=== PATIENT | female | born 1960 | race Caucasian/White ===

== ENCOUNTER 2020-05-06 13:49 | Inpatient (IN) ==
[2020-05-06] MEDS ORDERED: SODIUM CHLORIDE 0.9% 1000ML 1,000 ML IV ONE (14:20)
--- NOTE | 2020-05-06 14:36 | Emergency Department Note ---
Impression & Plan Hypercalcemia, Malignant neoplasm of endometrium, Bone metastases ED Provider Note NAME: RAPHAEL HAYWOOD AGE: 59 SEX: F ARRIVES VIA: Walk-In INFORMANT: Patient, ED PROVIDER(S): Shawn Dominique MD CHIEF COMPLAINT: Referred. Elevated Calcium. PLAN: Disposition: Admit MEDICAL DECISION MAKING: The patient is a pleasant 59-year-old woman with a past medical history of uterine cancer with bone mets followed by gynecology/[place]cology at [facility] [place] who undergoes radiation treatments at the [facility] locally who presents emergency department after being referred by her providers for elevated calcium to 12.1. However, the patient reports that today she feels the best she has felt recently in some time. She denies any fevers, chills, cough, congestion, nausea, vomiting abdominal pain, diarrhea or constipation. She has some pain in her left hip which she reports is unchanged and related to her metastatic disease. On arrival the patient is fatigued appearing but no acute distress, afebrile stable vital signs. Her reflexes are within normal limits. Abdomen is benign. EKG without overt acute ischemia. Chest x-ray negative for acute cardiopulmonary process. WBC and platelets within normal limits. H/H 11.2/35.4 without prior values for comparison. Chemistry without metabolic acidosis. BUN 23 with creatinine of 1.03 with BUN/cr>20 consistent with the patient's clinically dry appearance. Patient's calcium is 12.5 slightly elevated from earlier today per her report. Albumin 3.8. Phosphorus 2.0 and otherwise no significant electrolyte abnormalities. Patient within normal limits. TSH within normal limits. While the patient reports feeling relatively well today she does feel as though she has not been doing well in the past week related to weakness and body aches., After discussing the options for possible treatment and outpatient follow-up she did prefer admission at this time. Case was discussed with Curtis CERRATO PAC with Dr. Gamino, [facility] hospitalist, who will evaluate the patient for admission. Treatment initiated with IV zoledronic acid and subcu calcitonin in addition to IV fluid hydration. Triage Nursing notes reviewed and agree them. Prior medical records reviewed Vital Signs: reviewed and remarkable for no significant abnormalities Differential diagnosis: Infection, dehydration, metabolic abnormality, hypo/hyperglycemia, electrolyte disturbance, anemia, hypoxia, cardiac sources, intracerebral event, toxicologic, neurologic, as well as other pathologies. ER treatment provided: See below. Diagnostics interpreted by me: ECG: Normal sinus rhythm, 98 bpm, no ectopy, no overt ST elevation or depression, QTC 413, QRS 64. Cardiac Monitoring: An order for continuous cardiac monitoring was placed and demonstrated Normal sinus rhythm, 98 bpm, no ectopy. Laboratory studies: See below Imaging studies: XR chest 1V portable HISTORY: 59 years-old Female Chest Pain acute atypical chest pain COMPARISON: CT radiation study 04/08/2020 TECHNIQUE: Portable AP view of the chest FINDINGS: Cardiac silhouette is upper limits of normal in size. No pneumothorax, pleural effusion, overt pulmonary edema or airspace consolidation typical for pneumonia. Bones of the chest appear grossly intact. IMPRESSION: No acute process. Consultation(s): Case was discussed with Curtis CERRATO PAC with Dr. Gamino, [facility], who will evaluate the patient for admission. Treatment initiated with IV zoledronic acid and subcu calcitonin in addition to IV fluid hydration. HPI: The patient is a pleasant 59-year-old woman with a past medical history of uterine cancer with bone mets followed by gynecology/oncology at [facility] [place] who undergoes radiation treatments at the [facility] locally who presents emergency department after being referred by her providers for elevated calcium to 12.1. However, the patient reports that today she feels the best she has felt recently in some time. She denies any fevers, chills, cough, congestion, nausea, vomiting abdominal pain, diarrhea or constipation. She has some pain in her left hip which she reports is unchanged and related to her metastatic disease. ROS: See above HPI for pertinent positives & negatives. A total of 10 systems reviewed and were otherwise negative. PAST MEDICAL HISTORY:See Below PAST SURGICAL HISTORY:See Below FAMILY HISTORY:See Below SOCIAL HISTORY:See Below HOME MEDICATIONS:See Below ALLERGIES:See Below VITALS:See Below PHYSICAL EXAMINATION: GENERAL: Awake, alert, fatigued-appearing, in no distress HENT: Normocephalic, atraumatic. Oropharynx with dry mucous membranes and o therwise unremarkable. EYES: Normal conjunctiva. Sclera non-icteric. NECK: Supple. No nuchal rigidity. FROM. No JVD. RESPIRATORY: Clear to auscultation. CARDIAC: Regular rate, normal rhythm. Extremities warm and well perfused. Pulses equal. ABDOMEN: Soft, non-distended. No tenderness to palpation. No rebound or guarding. No masses. RECTAL: Deferred. MUSCULOSKELETAL: Chest examination reveals no tenderness. The back is symmetrical on inspection without obvious abnormality. There is no CVA tender ness to palpation. No joint edema. LOWER EXTREMITIES: Calves are equal size bilaterally and non-tender. No edema. No discoloration. NEURO: Normal sensorium. No sensory or motor deficits noted. DTRs wnl. SKIN: No rash or jaundice noted. Shawn Dominique MD Past Med/Surg History Medical History Diabetes mellitus HTN (hypertension) Hypercholesteremia Malignant neoplasm of endometrium 02/01/2020 Surgical History History of surgery Robotic assisted total laparoscopic hysterectomy with BSO, bilateral pelvic lymphadenectomy, cysto by Dr. Macdonald 02/01/2020 Hx of tonsillectomy Family History Mother Hypercholesteremia H/O partial thyroidectomy Father , 83yo Heart disease Myocardial infarction Hypercholesteremia Hypertension Lung disease Worked in [employer] Brother Colorectal cancer Brother Hypertension Hypercholesteremia Kidney disease Sister Colorectal cancer Social History Smoking Status: Never smoker Second Hand Exposure: No; Hx Alcohol Use: No Hx Substance Use: No Preferred Language: Lithuanian Communication Ability: Effective Visual Impairment: No Limitations Hearing Ability: Normal [employer] Required: No Beliefs That Will Affect Care: None marital status: Single Current Living Situation: Alone and Family Current Living Situation Comment: lives with brother and mother current occupational status: retired 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[employer] Other Information That Helps Us Care for You: No Feels Safe at Home: Yes Safety Concerns: Feels Safe At This Time caffeine: No during the past year weight has: decreased > 10 lbs Assistive Devices: Glasses and Walker Allergies Allergies Allergy/AdvReac Type Severity Reaction Status Date / Time No Known Drug Allergies Allergy Verified 04/15/20 11:28 Home Meds Home Medications Medication Instructions Recorded Confirmed aspirin 81 mg tablet,delayed 81 mg PO DAILY 10/09/19 05/06/20 release atorvastatin 20 mg tablet 20 mg PO DAILY 10/09/19 05/06/20 cholecalciferol (vitamin D3) 50 2,000 units PO DAILY cap 10/09/19 05/06/20 mcg (2,000 unit) capsule lisinopril 20 1 tab PO DAILY 10/09/19 05/06/20 mg-hydrochlorothiazide 12.5 mg tablet metformin 500 mg tablet 500 mg PO DAILY tab 10/12/19 05/06/20 acetaminophen 500 mg tablet 1,000 mg PO Q6H PRN tab 04/04/20 05/06/20 omeprazole 40 mg PO BID 05/06/20 05/06/20 ondansetron HCl 4 mg PO Q8H PRN 05/06/20 05/06/20 Previous Rx's Medication Instructions Recorded tramadol 50 mg tablet 50 mg PO Q8H PRN #45 tab MDD 150 04/16/20 Results & Data (ED) Vital Signs Vital Signs - 24 hr 05/06/20 13:50 05/06/20 14:00 05/06/20 14:31 Temperature 36.4 C L Temperature Source Oral Pulse Rate 125 H 99 H 93 H Pulse Rate [Apical] Pulse Rate from SpO2 Sensor 99 H 94 H Respiratory Rate 18 19 16 Respiratory Effort / Characteristics Respiratory Depth Blood Pressure 129/69 128/87 112/74 Blood Pressure [Right Arm] Blood Pressure Mean 89 97 80 Blood Pressure Mean [Right Arm] Blood Pressure Position [Right Arm] Pulse Oximetry 98 99 99 Oxygen Delivery Method Room Air Sepsis Recent Fever Within 48 Hours No Sepsis New/Unexplained Change in Mental Status No Sepsis Action Taken by Nursing No Action Required 05/06/20 14:32 05/06/20 14:36 05/06/20 15:00 Temperature Temperature Source Pulse Rate 97 H 91 H Pulse Rate [Apical] Pulse Rate from SpO2 Sensor 96 H 93 H Respiratory Rate 13 21 Respiratory Effort / Characteristics Respiratory Depth Blood Pressure 115/85 Blood Pressure [Right Arm] Blood Pressure Mean 105 Blood Pressure Mean [Right Arm] Blood Pressure Position [Right Arm] Pulse Oximetry 99 97 98 Oxygen Delivery Method Room Air Sepsis Recent Fever Within 48 Hours Sepsis New/Unexplained Change in Mental Status Sepsis Action Taken by Nursing 05/06/20 15:01 05/06/20 15:30 05/06/20 15:31 Temperature Temperature Source Pulse Rate 92 H 96 H 91 H Pulse Rate [Apical] Pulse Rate from SpO2 Sensor 93 H 94 H 92 H Respiratory Rate 20 14 13 Respiratory Effort / Characteristics Respiratory Depth Blood Pressure 104/71 Blood Pressure [Right Arm] Blood Pressure Mean 92 Blood Pressure Mean [Right Arm] Blood Pressure Position [Right Arm] Pulse Oximetry 99 98 98 Oxygen Delivery Method Sepsis Recent Fever Within 48 Hours Sepsis New/Unexplained Change in Mental Status Sepsis Action Taken by Nursing 05/06/20 16:11 05/06/20 16:30 05/06/20 17:00 Temperature Temperature Source Pulse Rate 90 95 H 94 H Pulse Rate [Apical] Pulse Rate from SpO2 Sensor 90 97 H 94 H Respiratory Rate 16 17 17 Respiratory Effort / Characteristics Respiratory Depth Blood Pressure Blood Pressure [Right Arm] Blood Pressure Mean Blood Pressure Mean [Right Arm] Blood Pressure Position [Right Arm] Pulse Oximetry 99 98 98 Oxygen Delivery Method Sepsis Recent Fever Within 48 Hours Sepsis New/Unexplained Change in Mental Status Sepsis Action Taken by Nursing 05/06/20 17:30 05/06/20 17:51 05/06/20 19:22 Temperature Temperature Source Pulse Rate 88 83 Pulse Rate [Apical] 90 Pulse Rate from SpO2 Sensor 88 86 Respiratory Rate 17 14 17 Respiratory Effort / Characteristics Non-Labored Spontaneous Respiratory Depth Normal Blood Pressure 125/89 Blood Pressure [Right Arm] 137/94 Blood Pressure Mean 104 Blood Pressure Mean [Right Arm] 108 Blood Pressure Position [Right Arm] Lying Pulse Oximetry 98 98 98 Oxygen Delivery Method Room Air Sepsis Recent Fever Within 48 Hours Sepsis New/Unexplained Change in Mental Status Sepsis Action Taken by Nursing Laboratory Data Attestation: I reviewed the patient's lab results. Result diagrams: 05/06/20 14:31 05/06/20 14:31 Lab Results 05/06/20 05/06/20 05/06/20 Range/Units 14:31 14:31 14:31 WBC 8.39 (4.8-10.8) K/uL RBC 4.59 (4.2-5.4) M/uL Hgb 11.2 L (12.0-16.0) g/dL Hct 35.4 L (37-47) % MCV 77.1 L (80-100) fL MCH 24.4 L (25-34) pg MCHC 31.6 L (32-36) g/dL RDW Std Deviation 41.7 (36.4-46.3) fL RDW Coeff of Jasmyn 14.7 H (11.5-14.5) % Plt Count 331 (130-400) K/uL MPV 9.7 (7.4-10.4) fL Immature Gran % (Auto) 0.2 % Neut % (Auto) 81.2 % Lymph % (Auto) 9.5 % [place] % (Auto) 8.0 % Eos % (Auto) 0.6 % Baso % (Auto) 0.5 % Neut # (Auto) 6.81 H (1.4-6.5) K/uL Lymph # (Auto) 0.80 L (1.2-3.4) K/uL [place] # (Auto) 0.67 H (0.11-0.59) K/uL Eos # (Auto) 0.05 (0-0.5) K/uL Baso # (Auto) 0.04 (0-0.2) K/uL Immature Gran # (Auto) 0.02 (0.00-0.02) K/uL PT Cancelled INR Cancelled APTT Cancelled PTT Ratio Cancelled Sodium 135 L (136-145) mmol/L Potassium 4.1 (3.5-5.1) mmol/L Chloride 100 (98-107) mmol/L Carbon Dioxide 27 (21-32) mmol/L Anion Gap 9.0 (3-11) BUN 23 H (7-18) mg/dl Creatinine 1.03 (0.6-1.2) mg/dl Est Cr Clr Drug Dosing 59.7 ml/min Est GFR ( Amer) 67.9 Est GFR (Non-Af Amer) 58.6 BUN/Creatinine Ratio 22.2 H (10-20) Glucose 89 (70-99) mg/dl Uric Acid 4.6 (2.6-7.2) mg/dl Calcium 12.5 H* (8.5-10.1) mg/dl Phosphorus 2.0 L (2.5-4.9) mg/dl Magnesium 2.1 (1.8-2.4) mg/dl Total Bilirubin 0.4 (0.2-1) mg/dl Direct Bilirubin 0.1 (0-0.2) mg/dl AST 13 L (15-37) U/L ALT 18 (12-78) U/L Alkaline Phosphatase 110 (45-117) U/L Total Creatine Kinase 37 (26-192) U/L Troponin I < 0.015 (0-0.045) ng/ml Total Protein 8.0 (6.4-8.2) gm/dl Albumin 3.3 L (3.4-5.0) gm/dl Globulin 4.7 H (2.5-4.0) gm/dl Albumin/Globulin Ratio 0.7 L (0.9-2) Lipase 153 (73-393) U/L TSH 0.390 (0.300-4.500) uIu/ml Urine Color Urine Appearance (Clear) Urine pH (4.5-7.5) Ur Specific [place] (1.000-1.030) Urine Protein (Negative) Urine Glucose (UA) (Negative) Urine Ketones (Negative) Urine Blood (Negative) Urine Nitrite (Negative) Urine Bilirubin (Negative) Urine Urobilinogen (Negative) Ur Leukocyte Esterase (Negative) Urine WBC (Auto) (0-5) /hpf Urine RBC (Auto) (0-4) /hpf U Hyaline Cast (Auto) (0-5) /lpf U Epithel Cells (Auto) (0-5) /lpf Urine Bacteria (Auto) (Negative) COVID-19 Eval Order SARS-CoV-2 (PCR) (Negative) Influenza Type A (PCR) (Neg) Influenza Type B (PCR) (Neg) RSV (RT-PCR) (Neg) 05/06/20 05/06/20 05/06/20 Range/Units 15:54 17:29 17:29 WBC (4.8-10.8) K/uL RBC (4.2-5.4) M/uL Hgb (12.0-16.0) g/dL Hct (37-47) % MCV (80-100) fL MCH (25-34) pg MCHC (32-36) g/dL RDW Std Deviation (36.4-46.3) fL RDW Coeff of Jasmyn (11.5-14.5) % Plt Count (130-400) K/uL MPV (7.4-10.4) fL Immature Gran % (Auto) % Neut % (Auto) % Lymph % (Auto) % [place] % (Auto) % Eos % (Auto) % Baso % (Auto) % Neut # (Auto) (1.4-6.5) K/uL Lymph # (Auto) (1.2-3.4) K/uL [place] # (Auto) (0.11-0.59) K/uL Eos # (Auto) (0-0.5) K/uL Baso # (Auto) (0-0.2) K/uL Immature Gran # (Auto) (0.00-0.02) K/uL PT 11.7 INR 1.1 APTT 25.9 PTT Ratio 0.9 Sodium (136-145) mmol/L Potassium (3.5-5.1) mmol/L Chloride (98-107) mmol/L Carbon Dioxide (21-32) mmol/L Anion Gap (3-11) BUN (7-18) mg/dl Creatinine (0.6-1.2) mg/dl Est Cr Clr Drug Dosing ml/min Est GFR ( Amer) Est GFR (Non-Af Amer) BUN/Creatinine Ratio (10-20) Glucose (70-99) mg/dl Uric Acid (2.6-7.2) mg/dl Calcium (8.5-10.1) mg/dl Phosphorus (2.5-4.9) mg/dl Magnesium (1.8-2.4) mg/dl Total Bilirubin (0.2-1) mg/dl Direct Bilirubin (0-0.2) mg/dl AST (15-37) U/L ALT (12-78) U/L Alkaline Phosphatase (45-117) U/L Total Creatine Kinase (26-192) U/L Troponin I (0-0.045) ng/ml Total Protein (6.4-8.2) gm/dl Albumin (3.4-5.0) gm/dl Globulin (2.5-4.0) gm/dl Albumin/Globulin Ratio (0.9-2) Lipase (73-393) U/L TSH (0.300-4.500) uIu/ml Urine Color Urine Appearance (Clear) Urine pH (4.5-7.5) Ur Specific [place] (1.000-1.030) Urine Protein (Negative) Urine Glucose (UA) (Negative) Urine Ketones (Negative) Urine Blood (Negative) Urine Nitrite (Negative) Urine Bilirubin (Negative) Urine Urobilinogen (Negative) Ur Leukocyte Esterase (Negative) Urine WBC (Auto) (0-5) /hpf Urine RBC (Auto) (0-4) /hpf U Hyaline Cast (Auto) (0-5) /lpf U Epithel Cells (Auto) (0-5) /lpf Urine Bacteria (Auto) (Negative) COVID-19 Eval Order CovFluRsv at [facility] SARS-CoV-2 (PCR) NEGATIVE (Negative) Influenza Type A (PCR) Negative (Neg) Influenza Type B (PCR) Negative (Neg) RSV (RT-PCR) Negative (Neg) 05/06/20 Range/Units 19:27 WBC (4.8-10.8) K/uL RBC (4.2-5.4) M/uL Hgb (12.0-16.0) g/dL Hct (37-47) % MCV (80-100) fL MCH (25-34) pg MCHC (32-36) g/dL RDW Std Deviation (36.4-46.3) fL RDW Coeff of Jasmyn (11.5-14.5) % Plt Count (130-400) K/uL MPV (7.4-10.4) fL Immature Gran % (Auto) % Neut % (Auto) % Lymph % (Auto) % [place] % (Auto) % Eos % (Auto) % Baso % (Auto) % Neut # (Auto) (1.4-6.5) K/uL Lymph # (Auto) (1.2-3.4) K/uL [place] # (Auto) (0.11-0.59) K/uL Eos # (Auto) (0-0.5) K/uL Baso # (Auto) (0-0.2) K/uL Immature Gran # (Auto) (0.00-0.02) K/uL PT INR APTT PTT Ratio Sodium (136-145) mmol/L Potassium (3.5-5.1) mmol/L Chloride (98-107) mmol/L Carbon Dioxide (21-32) mmol/L Anion Gap (3-11) BUN (7-18) mg/dl Creatinine (0.6-1.2) mg/dl Est Cr Clr Drug Dosing ml/min Est GFR ( Amer) Est GFR (Non-Af Amer) BUN/Creatinine Ratio (10-20) Glucose (70-99) mg/dl Uric Acid (2.6-7.2) mg/dl Calcium (8.5-10.1) mg/dl Phosphorus (2.5-4.9) mg/dl Magnesium (1.8-2.4) mg/dl Total Bilirubin (0.2-1) mg/dl Direct Bilirubin (0-0.2) mg/dl AST (15-37) U/L ALT (12-78) U/L Alkaline Phosphatase (45-117) U/L Total Creatine Kinase (26-192) U/L Troponin I (0-0.045) ng/ml Total Protein (6.4-8.2) gm/dl Albumin (3.4-5.0) gm/dl Globulin (2.5-4.0) gm/dl Albumin/Globulin Ratio (0.9-2) Lipase (73-393) U/L TSH (0.300-4.500) uIu/ml Urine Color Yellow Urine Appearance Clear (Clear) Urine pH 6.0 (4.5-7.5) Ur Specific [place] 1.013 (1.000-1.030) Urine Protein Negative (Negative) Urine Glucose (UA) Negative (Negative) Urine Ketones 1+ H (Negative) Urine Blood Negative (Negative) Urine Nitrite Negative (Negative) Urine Bilirubin Negative (Negative) Urine Urobilinogen Negative (Negative) Ur Leukocyte Esterase 3+ H (Negative) Urine WBC (Auto) >30 H (0-5) /hpf Urine RBC (Auto) 0-4 (0-4) /hpf U Hyaline Cast (Auto) 1-5 (0-5) /lpf U Epithel Cells (Auto) 10-20 H (0-5) /lpf Urine Bacteria (Auto) Negative (Negative) COVID-19 Eval Order SARS-CoV-2 (PCR) (Negative) Influenza Type A (PCR) (Neg) Influenza Type B (PCR) (Neg) RSV (RT-PCR) (Neg) Administered Medications Sodium Chloride (Nss 1000ml) 1,000 mls @ 100 mls/hr IV .Q10H VILMA Stop: 06/05/20 21:59 Last Admin: 05/06/20 21:20 Dose: 100 mls/hr Documented by: [id number] Ondansetron HCl (Ondansetron Inj 2 Mg/Ml 2 Ml Vial) 4 mg IV Q6H PRN PRN Reason: Nausea Stop: 06/05/20 20:58 Last Admin: 05/06/20 22:37 Dose: 4 mg Documented by: [id number] Pantoprazole Sodium (Pantoprazole 40 Mg Tab) 40 mg PO BID VILMA Stop: 06/05/20 20:59 Last Admin: 05/06/20 22:25 Dose: 40 mg Documented by: [id number] Discontinued Medications Al Hydrox/Mg Hydrox/Simethicone (Gi Cocktail Ed Use) 1 dose PO ONE ONE Stop: 05/06/20 16:37 Last Admin: 05/06/20 17:03 Dose: 1 dose Documented by: [id number] Sodium Chloride (Nss 1000ml) 1,000 mls @ 999 mls/hr IV .Q1H1M ONE Stop: 05/06/20 15:20 Last Infusion: 05/06/20 16:23 Dose: 0 mls/hr Documented by: [id number] Admin: 05/06/20 15:21 Dose: 999 mls/hr Documented by: [id number] Famotidine (Pepcid 20mg Iv Push) 20 mg in 5 mls @ 2.5 mls/min IV NOW STA Stop: 05/06/20 16:34 Last Admin: 05/06/20 17:02 Dose: 2.5 mls/min Documented by: [id number] Zoledronic Acid 4 mg/ Sodium (Chloride) 105 mls @ 210 mls/hr IV ONE ONE Stop: 05/06/20 17:29 Last Infusion: 05/06/20 18:27 Dose: 0 mls/hr Documented by: [id number] Admin: 05/06/20 17:52 Dose: 210 mls/hr Documented by: [id number] Sodium Chloride (Nss 1000ml) 1,000 mls @ 999 mls/hr IV .Q1H1M VILMA Stop: 05/06/20 18:14 Last Infusion: 05/06/20 18:27 Dose: 0 mls/hr Documented by: [id number] Admin: 05/06/20 17:22 Dose: 999 mls/hr Documented by: [id number] Calcitonin [place] 200 units/ (Syringe) 1 mls @ 0 mls/sec SQ NOW ONE Stop: 05/06/20 17:31 Last Admin: 05/06/20 17:52 Dose: 1 mls/sec Documented by: [id number] Discharge Plan Visit Data Chief Complaint: Abnormal Labs/Diagnostic Testing Stated Complaint: ABNORMAL LABS ED Provider: Shawn Dominique Discharge Problem: Hypercalcemia, Malignant neoplasm of endometrium, Bone metastases Patient Disposition: Admitted As Inpatient Discharge Instructions Interventions: ED Discharge Assessment Last Done: 05/06/20 20:22
--- NOTE | 2020-05-06 14:54 | XRay Report ---
XR chest 1V portable HISTORY: 59 years-old Female Chest Pain acute atypical chest pain COMPARISON: CT radiation study 04/08/2020 TECHNIQUE: Portable AP view of the chest FINDINGS: Cardiac silhouette is upper limits of normal in size. No pneumothorax, pleural effusion, overt pulmon aminta edema or airspace consolidation typical for pneumonia. Bones of the chest appear grossly intact. IMPRESSION: No acute process. ACT 112: Negative or not required by law. The above report was generated using voice recognition software. It may contain grammatical, syntax o r spelling errors. Electronically signed by: Greg Swan M.D. 05/06/2020 2:53 PM
[2020-05-06 15:16] LABS: Basophils # (auto) 0.04 K/uL (0-0.2); Basophils % (auto) 0.5 %; Eosinophils # (auto) 0.05 K/uL (0-0.5); Eosinophils % (auto) 0.6 %; Hematocrit (blood only) 35.4 % (37-47); Hemoglobin 11.2 g/dL (12.0-16.0); Immature Granulocytes # (auto) 0.02 K/uL (0.00-0.02); Immature Granulocytes % (auto) 0.2 %; Lymphocytes % (auto) 9.5 %; Mean Corpuscular Hemoglobin 24.4 pg (25-34); Mean Corpuscular Hgb Conc 31.6 g/dL (32-36); Mean Corpuscular Volume 77.1 fL (80-100); Mean Platelet Volume 9.7 fL (7.4-10.4); Monocytes # (auto) 0.67 K/uL (0.11-0.59); Neutrophils # (auto) 6.81 K/uL (1.4-6.5); Neutrophils % (auto) 81.2 %; Platelet Count 331 K/uL (130-400); RDW Coefficient of Variation 14.7 % (11.5-14.5); RDW Standard Deviation 41.7 fL (36.4-46.3); Red Blood Count 4.59 M/uL (4.2-5.4); White Blood Count 8.39 K/uL (4.8-10.8)
[2020-05-06 16:05] LABS: Alanine Aminotransferase 18 U/L (12-78); Albumin Globulin Ratio 0.7 (0.9-2); Albumin Level 3.3 gm/dl (3.4-5.0); Alkaline Phosphatase 110 U/L (45-117); Aspartate Aminotransferase 13 U/L (15-37); BUN Creatinine Ratio 22.2 (10-20); Bilirubin Direct 0.1 mg/dl (0-0.2); Bilirubin,Total 0.4 mg/dl (0.2-1); Blood Urea Nitrogen 23 mg/dl (7-18); Calcium 12.5 mg/dl (8.5-10.1); Carbon Dioxide 27 mmol/L (21-32); Chloride 100 mmol/L (98-107); Creatine Kinase 37 U/L (26-192); Creatinine Clr Calc Pharmacy 59.7 ml/min; Est GFR (African American) 67.9; Est GFR (Non-African American) 58.6; Globulin 4.7 gm/dl (2.5-4.0); Glucose 89 mg/dl (70-99); Lipase 153 U/L (73-393); Magnesium 2.1 mg/dl (1.8-2.4); Potassium 4.1 mmol/L (3.5-5.1); Sodium 135 mmol/L (136-145); Troponin I < 0.015 ng/ml (0-0.045); Uric Acid 4.6 mg/dl (2.6-7.2)
[2020-05-06 16:16] LABS: INR 1.1 (0.9-1.1); Partial Thromboplastin Ratio 0.9; Partial Thromboplastin Time 25.9 Seconds (21.0-31.0); Prothrombin Time 11.7 Seconds (9.0-12.0)
[2020-05-06] MEDS ORDERED: FAMOTIDINE 20MG IV PUSH 20 MG/5 ML SYR IV STA (16:33)
[2020-05-06] MEDS ORDERED: GI COCKTAIL ED USE PO ONE (16:36)
[2020-05-06] MEDS ORDERED: ZOLEDRONIC ACID 4 MG in 0.9 % SODIUM CHLORIDE 100 ML IV ONE (17:00)
[2020-05-06] MEDS ORDERED: SODIUM CHLORIDE 0.9% 1000ML 1,000 ML IV SCH (17:14)
[2020-05-06] MEDS ORDERED: CALCITONIN SALMON 400 UNITS/2 ML SQ STA (17:15)
--- NOTE | 2020-05-06 17:24 | History & Physical Report ---
Date of Service May 06, 2020 Assessment & Plan (1) Hypercalcemia: I suspect the patient's hypercalcemia is likely related to underlying malignancy and bony metastasis. Currently she does not have any underlying neurologic sequelae related to her hypercalcemia we will get her to the hospital proceed as follows: She is already received calcitonin as well as zoledronic acid. She has received 1 L of normal saline solution and we will give her an additional liter and place her on maintenance IV fluid overnight. We will repeat labs in the morning to ensure her calcium is moving in the right direction. Patient does not have a local oncologist and she is expressed some desire to establish one. She notes that her primary care team was in the process of establishing this. We will therefore consult hematology/oncology for further recommendations while she is in the hospital. We will use Lovenox for DVT prevention I discussed CODE STATUS with her in the event of cardiopulmonary arrest she wishes to be a level 1 full code History of Present Illness Chief Complaint: My calcium is high Primary Care Provider: Monica Wesley This is a 59-year-old female with a history of metastatic endometrial cancer. Patient notes that she had a total abdominal hysterectomy and oophorectomy in January 2020 at [facility]. She said during the course of her oncologic evaluation she was found to have bone mets to her left hip. Because of this she underwent 10 radiation therapy treatments [facility]. She said that she did not require chemotherapy to date. Her [employer]ER/oncology team is currently at [facility] and she does not have a local medical oncologist. Patient was complaining of some heartburn earlier in the week and she therefore saw her primary care nurse practitioner who ordered blood work. Patient was found to be hypercalcemic and she was referred to the emergency department for further evaluation. Today the emergency department the patient had a chest x-ray that showed no acute cardiopulmonary process. CBC showed her white blood cell count and platelet count were within normal range. Her hemoglobin and hematocrit are 11.2 and 35.4. Chemistry profile showed sodium was 135 her potassium and creatinine were within the normal range. Her calcium was elevated at 12.5. Cardiac enzymes were not elevated. Lipase and TSH were in the normal range. An EKG showed normal sinus rhythm no prolonging of the QT interval was noted. Patient the patient about symptomatology related to her hypercalcemia. She said that she has no issues with kidney stones. She does not have any back pain but does have some pain in her left hip but this is a chronic problem related to her bone metastases. She does not have any headaches. She has had no episodes of confusion. She denies any abdominal pain or nausea vomiting. She notes that she ambulates with a walker due to pain in her left hip. She has not had any recent falls, head injuries, or loss of consciousness. Thus far in the emergency department she has received 1 L of normal saline. The treating emergency room physician has ordered 4 mg of zoledronic acid along with 200 units of calcitonin. At the time of my exam she was resting comfortably in bed in no distress. Allergies Allergy/AdvReac Type Severity Reaction Status Date / Time No Known Drug Allergies Allergy Verified 04/15/20 11:28 Home Medications Medication Instructions Recorded Confirmed Type aspirin 81 mg tablet,delayed 81 mg PO DAILY 10/09/19 05/06/20 History release atorvastatin 20 mg tablet 20 mg PO DAILY 10/09/19 05/06/20 History cholecalciferol (vitamin D3) 50 2,000 units PO DAILY cap 10/09/19 05/06/20 History mcg (2,000 unit) capsule lisinopril 20 1 tab PO DAILY 10/09/19 05/06/20 History mg-hydrochlorothiazide 12.5 mg tablet metformin 500 mg tablet 500 mg PO DAILY tab 10/12/19 05/06/20 History acetaminophen 500 mg tablet 1,000 mg PO Q6H PRN tab 04/04/20 05/06/20 History tramadol 50 mg tablet 50 mg PO Q8H PRN #45 tab MDD 150 04/16/20 Rx omeprazole 40 mg PO BID 05/06/20 05/06/20 History ondansetron HCl 4 mg PO Q8H PRN 05/06/20 05/06/20 History Past Med/Surg History Medical History Diabetes mellitus HTN (hypertension) Hypercholesteremia Malignant neoplasm of endometrium 02/01/2020 Surgical History History of surgery Robotic assisted total laparoscopic hysterectomy with BSO, bilateral pelvic lymphadenectomy, cysto by Dr. 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 [employer] Brother Colorectal cancer Brother Hypertension Hypercholesteremia Kidney disease Sister Colorectal cancer Social History Smoking Status: Never smoker Second Hand Exposure: No; Hx Alcohol Use: No Hx Substance Use: No Preferred Language: Urdu Communication Ability: Effective Visual Impairment: No Limitations Hearing Ability: Normal Animal Ride Attendant Required: No Beliefs That Will Affect Care: None marital status: Single Current Living Situation: Alone and Family Current Living Situation Comment: lives with brother and mother current occupational status: retired 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/[employer] Other Information That Helps Us Care for You: No Feels Safe at Home: Yes Safety Concerns: Feels Safe At This Time caffeine: No during the past year weight has: decreased > 10 lbs Assistive Devices: Glasses and Walker Review of Systems Constitutional: no fever, no body aches and no weakness Eyes: no diplopia Ear, Nose, Mouth, Throat: no ear pain Respiratory: no cough and no dyspnea Cardiovascular: no chest pain Gastrointestinal: + heartburn; no abdominal pain, no nausea and no vomiting Genitourinary: no dysuria and no urinary frequency Musculoskeletal: + joint pain (Left hip); no back pain Integumentary: no rash Neurologic: no localized weakness Physical Exam Constitutional: well developed and well nourished; no acute distress Eyes: PERRL; no conjunctival abnormality Wears glasses ENMT: Ears: no hearing impairment Neck: trachea midline Respiratory: normal respiratory effort, lungs clear to auscultation Cardiovascular: Rate/Rhythm: regular rate and regular rhythm Gastrointestinal (Abdomen): Percussion/Palpation: abdomen soft; abdomen nontender (No pain with palpation) Musculoskeletal: No calf tenderness. No pain with palpation of her spine from the cervical region to the lumbar region Skin: no rashes, warm and dry Neurologic: CN's II-XI intact bilaterally and moves all extremities Psychiatric: A+Ox3, euthymic affect Results & Data Results & Data ([facility]) Vital Signs (Past 12 Hours) Vital Signs Temp Pulse Resp BP Pulse Ox 05/06/20 15:31 91 H 13 98 05/06/20 15:30 96 H 14 104/71 98 05/06/20 15:01 92 H 20 99 05/06/20 15:00 91 H 21 115/85 98 05/06/20 14:36 97 05/06/20 14:32 97 H 13 99 05/06/20 14:31 93 H 16 112/74 99 05/06/20 14:00 99 H 19 128/87 99 05/06/20 13:50 36.4 C L 125 H 18 129/69 98 Supervising Physician Co-Signing Physician Notes I personally saw and examined the patient. I verified all mancini points and agree with MIKE Rojas with the following exceptions and/or additions: 59-year-old female presents to the ER with elevated calcium on outpatient labs. On no bisphosphonates or denosumab as an outpatient despite multiple bone metastatic endometrial cancer. She is under gynecology oncology in [place] and has no local oncologist. Metastatic disease was diagnosed by an orthopedic oncologist in [place] after left hip pain showed lytic lesions and subsequent biopsy confirmed metastatic endometrial cancer. Subsequently she was referred to radiation oncology here in [place]. She is unsure whether her [employer]/ONC physician in [place] has the results of her bone scans. She currently feels improved after radiation treatments to her left hip and thoracic spine. No planned follow up until July. O/E Pain over right ribs, left shoulder (Unable to abduct above 90 degrees), Left lateral hip on any hip movements and weightbearing. HS 1+2, no murmurs, Chest CTAB A/P Asymptomatic moderate hypercalcemia - Agree with zometa given metastatic bone disease. Consult oncology for ongoing treatment of this. No need for further calcitonin as not severe. PG Care Time/CCT Total # of Minutes Spent Total Time Spent with Patient: Total time spent is greater than 50% in coordination of care (as documented) at patient's floor/unit and/or counseling patient: Coding Level of Care Code 70352 Initial Inpt Care Lvl 2 Diagnoses Hypercalcemia E83.52
[2020-05-06] MEDS ORDERED: CALCITONIN SALMON 200 UNITS in SYRINGE 0 ML SQ ONE (17:30)
[2020-05-06 18:36] LABS: Influenza A virus by PCR Negative (Neg); Influenza B virus by PCR Negative (Neg); RSV by PCR Negative (Neg); SARS CoV2 RNA(COVID-19) InHosp NEGATIVE (Negative)
--- NOTE | 2020-05-06 18:42 | Electrocardiogram Report ---
Test Reason : Blood Pressure : / mmHG Vent. Rate : 098 BPM Atrial Rate : 098 BPM P-R Int : 140 ms QRS Dur : 064 ms QT Int : 324 ms P-R-T Axes : 025 003 037 degrees QTc Int : 413 ms Normal sinus rhythm Normal ECG No previous ECGs available Confirmed by Sherwin Patten ([id number]) on 05/06/2020 6:42:18 PM Referred By: ED Confirmed By:Sherwin Patten
[2020-05-06 19:43] LABS: Appearance Urine Clear (Clear); Bacteria Urine Automated Negative (Negative); Bilirubin Urine Negative (Negative); Blood Urine Negative (Negative); Color Urine Yellow; Glucose Urine UA Negative (Negative); Ketones Urine 1+ (Negative); Leukocyte Esterase Urine 3+ (Negative); Nitrite Urine Negative (Negative); Protein Urine Negative (Negative); RBC Urine Automated 0-4 /hpf (0-4); Specific Gravity Urine 1.013 (1.000-1.030); Urobilinogen Urine Negative (Negative); WBC Urine Automated >30 /hpf (0-5)
[2020-05-06] MEDS ORDERED: ACETAMINOPHEN 500 MG TAB PO PRN (20:59)
[2020-05-06] MEDS: SODIUM CHLORIDE 0.9% 1000ML 1,000 ML IV SCH (21:20)
[2020-05-06] MEDS: PANTOprazole 40 MG TAB PO SCH (22:25)
[2020-05-06] MEDS: ONDANSETRON INJ 2 MG/ML 2 ML VIAL IV PRN (22:37)
[2020-05-06] MEDS ORDERED: GLUCOSE 40% GEL 15 GM TUBE PO PRN (22:43)
[2020-05-06] MEDS ORDERED: DEXTROSE 50% 50 ML SYRINGE IV PRN (22:43)
[2020-05-06] MEDS ORDERED: GLUCOSE 10 TABS/TUBE PO PRN (22:43)
[2020-05-06] MEDS ORDERED: CARBOHYDRATES FOR HYPOGLYCEMIA PO PRN (22:43)
[2020-05-06] MEDS ORDERED: GLUCAGON FOR INJ 1 MG VIAL SQ PRN (22:43)
[2020-05-07 07:22] LABS: BUN Creatinine Ratio 20.1 (10-20); Creatinine Clr Calc Pharmacy 81.9 ml/min; Est GFR (African American) 98.1; Est GFR (Non-African American) 84.7; Potassium 3.7 mmol/L (3.5-5.1)
[2020-05-07] MEDS ORDERED: metFORMIN HCL 500 MG TAB PO SCH (07:30)
[2020-05-07] MEDS: SODIUM CHLORIDE 0.9% 1000ML 1,000 ML IV SCH ×2 (07:34→20:28)
[2020-05-07] MEDS: ASPIRIN 81 MG ECTAB PO SCH (09:24)
[2020-05-07] MEDS: ATORVASTATIN 20 MG TAB PO SCH (09:24)
[2020-05-07] MEDS: CHOLECALCIFEROL 1,000 UNITS 25 MCG TAB PO SCH (09:24)
[2020-05-07] MEDS: PANTOprazole 40 MG TAB PO SCH ×2 (09:25→20:28)
[2020-05-07] MEDS: LISINOPRIL/HCTZ 20/12.5MG 1 TAB TAB PO SCH (09:25)
[2020-05-07] MEDS: ENOXAPARIN INJ 40 MG/0.4 ML SYR SQ SCH (09:25)
[2020-05-07] MEDS: INSULIN ASPART 100 UNITS/ML 3 ML PEN SC SCH ×4 (09:30→22:23)
[2020-05-07] MEDS: ONDANSETRON INJ 2 MG/ML 2 ML VIAL IV PRN ×2 (09:35→16:36)
[2020-05-07] MEDS: INSULIN GLARGINE SOLOSTAR 100 UNITS/ML 3 ML PEN SC SCH ×2 (09:40→22:23)
--- NOTE | 2020-05-07 12:37 | Consultation Report ---
DATE OF CONSULTATION: 05/07/2020 MEDICAL ONCOLOGY CONSULTATION REASON FOR CONSULTATION: Metastatic endometrial carcinoma (bone mets). HISTORY OF PRESENT ILLNESS: Mary is a pleasant 59-year-old female patient who was admitted to [facility] [address] early this morning with an elevated calcium level. The patient now has an established diagnosis of metastatic endometrial cancer, originally diagnosed with stage IA of the endometrium in 01/2020. The patient underwent total hysterectomy performed by Dr. Macdonald at [facility]. She was to receive adjuvant radiation therapy and unfortunately was diagnosed with metastatic endometrial carcinoma of the bony skeleton. Specifically, lesions are multiple in number. However, the symptomatic lesions were within the thoracic spine and left femur. She subsequently received 10 fractions of radiation therapy to both the T-spine and left femur, total dose administered was 3000 cGy. Her bone pain has significantly improved. The patient has not been formally evaluated by medical oncology and is on no current treatment. The patient subsequently has been battling with heartburn-like symptomatology, actually saw her nurse practitioner who ordered blood work and was found to have an elevated calcium level of 12.5. She was subsequently admitted and given calcitonin, bisphosphonate therapy and IV hydration. The patient is awake, alert and appropriate, has no other complaints and is requesting medical oncology followup locally. She is scheduled to follow up with Dr. Macdonald next month. I will plan to see her after her visit with Dr. Macdonald. PAST MEDICAL HISTORY: Includes metastatic endometrial carcinoma, hypertension, diabetes mellitus and hypercholesterolemia. PAST SURGICAL HISTORY: Robotic-assisted total laparoscopic hysterectomy and bilateral salpingo-oophorectomy, bilateral pelvic lymphadenectomy performed by Dr. Macdonald on 02/01/2020, remote history of tonsillectomy. MEDICATIONS: Prior to admission include Zofran 4 mg p.o. q.8 hours p.r.n., omeprazole 40 mg p.o. b.i.d., tramadol 50 mg p.o. q.8 hours p.r.n., acetaminophen 1000 mg p.o. q.6 hours p.r.n., metformin 500 mg p.o. daily, lisinopril/hydrochlorothiazide 1 tablet p.o. daily, cholecalciferol 2000 units p.o. daily, atorvastatin 20 mg p.o. daily, aspirin 81 mg p.o. daily. ALLERGIES: No known drug allergies. FAMILY HISTORY: Father at age 83, suffered from heart disease, hypercholesterolemia, hypertension and lung disease. Mother with history of hypercholesterolemia and partial thyroidectomy. She had a brother succumbed to colorectal cancer and another brother who suffers from kidney disease, hypercholesterolemia and hypertension. She also lost her sister to colorectal cancer. SOCIAL HISTORY: The patient lives with her brother and mother. She is retired. She is a nonsmoker, nondrinker, non-illicit drug user. REVIEW OF SYSTEMS: CONSTITUTIONAL: As per HPI, most notably for symptoms related to pyrosis. Denies anorexia or weight loss, however, her appetite has diminished with the heartburn symptoms. No fevers, chills or sweats. SKIN: No rashes or lesions. No history of dermatoses. HEENT: Negative for headaches, lightheadedness or dizziness. No acute visual or hearing deficits. No sinus symptoms, sore throat or dysphagia. LYMPHATICS: No history of lymphadenopathy or lymphoproliferative disease. CARDIAC: No history of coronary artery disease, no angina or palpitations. PULMONARY: Negative for COPD. She is not short of breath, dyspneic or orthopneic. No cough or hemoptysis. GASTROINTESTINAL: Positive for pyrosis. No nausea or vomiting, diarrhea or constipation, hematochezia or melena stools. GENITOURINARY: No hematuria, dysuria, or urinary incontinence. MUSCULOSKELETAL: Recent diagnosis of bony mets, status post radiation therapy. ENDOCRINE: Positive for diabetes mellitus. NEUROLOGIC: Negative for seizure, stroke, or migraine headache. HEMATOLOGIC: Positive for microcytic anemia. PHYSICAL EXAMINATION: GENERAL: Very pleasant 59-year-old female, awake, alert and appropriate, in no acute distress. VITAL SIGNS: Temperature 36.7, pulse 87, respiratory rate 16, blood pressure 116/77, O2 sat 97% on room air. SKIN: Warm, dry, noncyanotic without petechia, rash or ecchymosis. HEENT: Head is atraumatic, normocephalic. Eyes: PERRLA, EOMI. Nares patent without rhinorrhea or discharge. Throat is clear. Tongue midline. No buccal lesions or ulcerations. NECK: Supple without JVD or thyromegaly. LYMPHATICS: No cervical or supraclavicular palpable nodes. HEART: Regular rate and rhythm. No clicks, rubs, murmurs, or gallops. LUNGS: Clear to auscultation bilaterally. ABDOMEN: Soft, nontender, nondistended. EXTREMITIES: No clubbing, cyanosis or edema. Pneumatic compression stockings in place. NEUROLOGICAL: She is awake, alert and oriented x3. Cranial nerves grossly intact. LABORATORY DATA: WBC count 8390, hemoglobin 11.2, platelet count 331,000. Sodium 137, potassium 3.7, chloride 104, carbon dioxide 25, creatinine 0.76, BUN 15, calcium 10, albumin 3.3. RADIOGRAPHIC REPORT: Chest x-ray negative. IMPRESSION: 1. Hypercalcemia, attributable to malignancy. 2. Microcytic anemia. 3. Metastatic endometrial carcinoma. 4. Pyrosis. PLAN: In summary, Mary is a very pleasant 59-year-old female who was admitted to [facility] [address] earlier this morning with elevated calcium levels. This lady is primarily followed by surgical gynecology/oncology at the [facility] when she was diagnosed with stage IA endometrial carcinoma. The patient subsequently underwent robotic-assisted laparoscopic total abdominal hysterectomy and bilateral salpingo-oophorectomy performed by Dr. Macdonald in mid January. Shortly thereafter developed skeletal pain and was found to have biopsy proven skeletal metastatic disease. The patient has not engaged medical oncology and is on no current systemic therapy. She received palliative XRT to the thoracic spine and left femur, which completed on 04/29. I spoke to Dr. Gilmore on this regard. The patient is requesting continuity of care from a medical oncology standpoint. Clearly, this lady should be on some form of systemic therapy and would like to receive copies of all radiographic studies done to date. Regular bisphosphonate therapy would be warranted in view of hypercalcemia as well as a disseminated osseous metastatic disease. She will reconvene with Dr. Macdonald in mid May. I would like to see her towards the end of May and discuss treatment options thereafter. We will also begin working up Mary's anemia while in house. Obtain iron studies and a reticulocyte count. I have also taken the liberty of ordering a CA-125. Thank you very much for allowing me to participate in her care. I anticipate seeing her in followup upon discharge.
--- NOTE | 2020-05-07 17:02 | Hospitalist Progress Note ---
Date of Service May 07, 2020 Assessment & Plan (1) Hypercalcemia: 1-18 Ca 12.5, asymptomatic likely related to metastatic disease received 1L fluids, zoledronic acid and calcitonin 1-19 Ca 10, hypercalcemia resolved check PTH in morning may need long-term bisphosphonate therapy (2) Bone metastases: s/p radiation therapy 10 fractions total of 3000cGy to T-spine and left femur (3) Malignant neoplasm of endometrium: Dr. French saw patient and will follow up in clinic after discharge patient will need systemic therapy (4) Complicated UTI (urinary tract infection): 1-18 urine with >30 WBC, 3+ LE, negative nitrite, negative bacteria -19 culture with > 100,000 CFU, awaiting species (5) Diabetes mellitus: stop metformin while inpatient cont levemir 8 units, aspart with meals (6) Anemia: Dr. French evaluating with iron study and retic count (7) HTN (hypertension): well controlled continue lisinopril/HCTZ DVT prophy lovenox discharge home in morning 05-08 Admission and Anticipated Discharge Date Admission Date: May 06, 2020 Results & Data Results & Data ([facility]) Vital Signs (Past 12 Hours) Vital Signs Temp Pulse Resp BP Pulse Ox 05/07/20 15:44 36.5 C 78 17 102/70 96 05/07/20 07:57 36.7 C 87 16 116/77 97 PG Care Time/CCT Total # of Minutes Spent Total Time Spent with Patient: Total time spent is greater than 50% in coordination of care (as documented) at patient's floor/unit and/or counseling patient: Coding Level of Care Code 71202 Subseq Hosp Care Lvl 2 Diagnoses Hypercalcemia E83.52 Bone metastases C79.51 Malignant neoplasm of endometrium C54.1 Complicated UTI (urinary tract infection) N39.0 Diabetes mellitus E11.9 Diabetes mellitus type: type 2 Diabetes mellitus 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 use: unspecified 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 use status Diabetes mellitus complication status: without complication Anemia D64.9 Anemia type: unspecified type HTN (hypertension) I10 Hypertension type: essential hypertension (1) Diabetes mellitus Diabetes mellitus type: type 2 Diabetes mellitus 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
[2020-05-07 23:33] VITALS: O2SAT 95
[2020-05-08] MEDS: ONDANSETRON INJ 2 MG/ML 2 ML VIAL IV PRN (04:49)
[2020-05-08] MEDS: SODIUM CHLORIDE 0.9% 1000ML 1,000 ML IV SCH (05:58)
[2020-05-08] MEDS: DICLOFENAC SOD 1% GEL 100 GM TUBE EXT SCH ×2 (05:58→12:38)
[2020-05-08 06:14] LABS: Basophils # (auto) 0.04 K/uL (0-0.2); Basophils % (auto) 0.5 %; Eosinophils # (auto) 0.06 K/uL (0-0.5); Eosinophils % (auto) 0.8 %; Hematocrit (blood only) 32.8 % (37-47); Hemoglobin 10.3 g/dL (12.0-16.0); Immature Granulocytes # (auto) 0.02 K/uL (0.00-0.02); Immature Granulocytes % (auto) 0.3 %; Lymphocytes # (auto) 0.66 K/uL (1.2-3.4); Mean Corpuscular Hemoglobin 24.2 pg (25-34); Mean Corpuscular Hgb Conc 31.4 g/dL (32-36); Mean Platelet Volume 9.4 fL (7.4-10.4); Monocytes # (auto) 0.59 K/uL (0.11-0.59); Neutrophils % (auto) 81.4 %; Platelet Count 311 K/uL (130-400); RDW Coefficient of Variation 14.8 % (11.5-14.5); RDW Standard Deviation 41.5 fL (36.4-46.3); Red Blood Count 4.26 M/uL (4.2-5.4); Reticulocyte % 0.7 % (0.5-2.0); Reticulocytes # 0.03 10^6/uL (0.02-0.10); White Blood Count 7.37 K/uL (4.8-10.8)
[2020-05-08 06:51] LABS: Albumin Level 2.8 gm/dl (3.4-5.0); BUN Creatinine Ratio 11.2 (10-20); Calcium 9.5 mg/dl (8.5-10.1); Creatinine Clr Calc Pharmacy 84.1 ml/min; Est GFR (African American) 101.3; Est GFR (Non-African American) 87.4; Magnesium 1.8 mg/dl (1.8-2.4); Potassium 3.4 mmol/L (3.5-5.1)
[2020-05-08 07:21] LABS: Albumin Globulin Ratio 0.7 (0.9-2); Bilirubin,Total 0.4 mg/dl (0.2-1); Ferritin 804.1 ng/ml (8-388); Globulin 4.1 gm/dl (2.5-4.0); Phosphorus 1.6 mg/dl (2.5-4.9); Total Protein 6.9 gm/dl (6.4-8.2)
[2020-05-08] MEDS ORDERED: POTASSIUM PHOS 3 MMOL/1 ML INFUSION IV STA (07:47)
--- NOTE | 2020-05-08 07:58 | Discharge Summary ---
Date of Service May 08, 2020 Admission HPI Per Admitting Provider This is a 59-year-old female with a history of metastatic endometrial cancer. Patient notes that she had a total abdominal hysterectomy and oophorectomy in January 2020 at [facility]. She said during the course of her oncologic evaluation she was found to have bone mets to her left hip. Because of this she underwent 10 radiation therapy treatments [facility]. She said that she did not require chemotherapy to date. 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 Patient was complaining of some heartburn earlier in the week and she therefore saw her primary care nurse practitioner who ordered blood work. Patient was found to be hypercalcemic and she was referred to the emergency department for further evaluation. Today the emergency department the patient had a chest x-ray that showed no acute cardiopulmonary process. CBC showed her white blood cell count and platelet count were within normal range. Her hemoglobin and hematocrit are 11.2 and 35.4. Chemistry profile showed sodium was 135 her potassium and creatinine were within the normal range. Her calcium was elevated at 12.5. Cardiac enzymes were not elevated. Lipase and TSH were in the normal range. An EKG showed normal sinus rhythm no prolonging of the QT interval was noted. Patient the patient about symptomatology related to her hypercalcemia. She said that she has no issues with kidney stones. She does not have any back pain but does have some pain in her left hip but this is a chronic problem related to her bone metastases. She does not have any headaches. She has had no episodes of confusion. She denies any abdominal pain or nausea vomiting. She notes that she ambulates with a walker due to pain in her left hip. She has not had any recent falls, head injuries, or loss of consciousness. Thus far in the emergency department she has received 1 L of normal saline. The treating emergency room physician has ordered 4 mg of zoledronic acid along with 200 units of calcitonin. At the time of my exam she was resting comfortably in bed in no distress. Principal Diagnosis hypercalcemia Discharge Exam Constitutional well developed and well nourished; no acute distress Eyes PERRL, conjunctivae normal, anicteric sclerae ENMT Mouth: oral mucous membranes not dry Respiratory normal respiratory effort; no respiratory distress and no labored breathing Auscultation: lungs clear to auscultation bilaterally; no crackles, no rales, no rhonchi and no wheezes Cardiovascular Rate/Rhythm: regular rate and regular rhythm Heart Sounds: no murmur and no cardiac rub Vessels: normal peripheral pulses and radial pulses present; no JVD Extremities: no edema Gastrointestinal (Abdomen) Inspection/Auscultation: abdomen normal to inspection and normal bowel sounds; abdomen not distended Percussion/Palpation: abdomen soft; abdomen nontender, no guarding, abdomen not rigid and no hepatosplenomegaly Musculoskeletal Head/Neck/Chest: normocephalic and head atraumatic Spine: no cervical spinal tenderness, no cervical muscular tenderness, no thoracic spinal tenderness and no lumbar spinal tenderness Skin no rashes, warm and dry Neurologic CN's II-XI intact bilaterally and moves all extremities Motor/Sensory: no tremor and no sensory deficit Psychiatric Orientation: alert, oriented to person, oriented to place and oriented to time Apperance: appropriately groomed; not disheveled Affect: euthymic affect; no anxious affect and no tearful affect Genitourinary no CVA tenderness Discharge Data Allergies Allergy/AdvReac Type Severity Reaction Status Date / Time No Known Drug Allergies Allergy Verified 04/15/20 11:28 Consultations 05/06/20 16:33 ED Decision to Admit Stat 05/06/20 20:59 Consult Oncology Routine Hospital Course (1) Hypercalcemia: 1-18 Ca 12.5, asymptomatic likely related to metastatic disease received 1L fluids, zoledronic acid and calcitonin 1-19 Ca 10, hypercalcemia resolved check PTH in morning may need long-term bisphosphonate therapy, defer to PCP 1-20 Ca 9.5 (normal) (2) Complicated UTI (urinary tract infection): 1-18 urine with >30 WBC, 3+ LE, negative nitrite, negative bacteria 1-19 culture with > 100,000 CFU, awaiting species 1-20 urine culture with E. coli susceptible to bactrim start bactrim DS 160/800 BID for 7 days (3) Hypophosphatemia: 1-20 phos was 1.6, giving 15 mmol K-phos (4) Hypokalemia: 1-20 K was 3.4, receiving about 20 meq K with K-phos giving another 20meq KCl (5) Bone metastases: s/p radiation therapy 10 fractions total of 3000cGy to T-spine and left femur (6) Malignant neoplasm of endometrium: Dr. French saw patient and will follow up in clinic after discharge patient will need systemic therapy (7) Diabetes mellitus: stop metformin while inpatient insulin while inpatient (8) Anemia: Dr. French evaluating with iron study and retic count (9) HTN (hypertension): well controlled continue lisinopril/HCTZ DVT prophy lovenox discharge home in morning 1-20 Total Time Total Time Spent Total Time Spent (In Minutes): 50 minutes Total Time Includes: Examination of the Patient, Discharge Planning, Medication Reconciliation and Communication With Other Providers Discharge Plan Discharge Items Patient Disposition: Home - Self-Care Reason For Visit: HYPERCALCEMIA Discharge Diagnosis: elevated calcium low potassium low phosphorus complicated urinary tract infection Activity: Resume your previous activity Non-emergency contact: Primary Care Provider Call non-emergency contact if: you have any medication questions Follow-up/Referrals: Clemente French DO [Physician] - (within two weeks) Monica Wesley CRNP [Primary Care Provider] - (within one week for BMP and phosphorus labs and to discuss bisphosphonate therapy) Diet: Carb Consistent or DM2 Addtl Attending Provider Instructions: Take bactrim DS 160/800 for 7 days, through May 14 for treatment of e. coli urinary tract infection Stop taking calcium supplements See your primary care physician within one week for repeat blood work, pending PTH level, and to discuss starting a bisphosphonate See Dr. French within two weeks for further discussion of cancer treatment and anemia Pending Studies at Discharge: Yes Studies:: PTH level Stand-Alone Forms: My [facility] [employer] Mobile, Smoking Cessation Medications and DC Order Prescriptions: New sulfamethoxazole-trimethoprim 800-160 mg Tablet 1 tab PO Q12 7 Days Qty: 13 RF: 0 Continued acetaminophen [Tylenol Extra Strength] 500 mg tablet 1,000 mg PO Q6H PRN (Reason: Pain) RF: 0 tramadol 50 mg tablet 50 mg PO Q8H MDD 150 PRN (Reason: pain) Qty: 45 RF: 0 aspirin 81 mg tablet,delayed release (DR/EC) 81 mg PO DAILY RF: 0 atorvastatin 20 mg tablet 20 mg PO DAILY RF: 0 lisinopril-hydrochlorothiazide 20-12.5 mg tablet 1 tab PO DAILY RF: 0 cholecalciferol (vitamin D3) 50 mcg (2,000 unit) capsule 2,000 units PO DAILY RF: 0 metformin 500 mg tablet 500 mg PO DAILY RF: 0 ondansetron HCl 4 mg tablet 4 mg PO Q8H PRN (Reason: Nausea) RF: 0 omeprazole 40 mg capsule,delayed release(DR/EC) 40 mg PO BID RF: 0 Discharge Orders: Discharge Order (Routine); Ordered 05/08/20 Ordered By: Ellyn Siddiqui Admission Data Admit Date/Time: 05/06/20 19:30 Attending Provider: Ellyn Siddiqui Admit Provider: Reji Gamino Primary Care Provider: Monica Wesley Other Providers: Reji Gamino ; Clemente French V. 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
[2020-05-08] MEDS ORDERED: POTASSIUM CHLORIDE CRTAB 20 MEQ TABCR PO ONE (08:00)
[2020-05-08] MEDS ORDERED: POTASSIUM PHOSPHATE 15 MMOL in SODIUM CHLORIDE 0.9% 250 ML IV ONE (08:15)
[2020-05-08 08:22] VITALS: BP 108/72; PULSE 84; TEMP 98.6
[2020-05-08] MEDS: LISINOPRIL/HCTZ 20/12.5MG 1 TAB TAB PO SCH (08:48)
[2020-05-08] MEDS: ATORVASTATIN 20 MG TAB PO SCH (08:48)
[2020-05-08] MEDS: ENOXAPARIN INJ 40 MG/0.4 ML SYR SQ SCH (08:48)
[2020-05-08] MEDS: ASPIRIN 81 MG ECTAB PO SCH (08:48)
[2020-05-08] MEDS: PANTOprazole 40 MG TAB PO SCH (08:48)
[2020-05-08] MEDS: CHOLECALCIFEROL 1,000 UNITS 25 MCG TAB PO SCH (08:49)
[2020-05-08] MEDS: INSULIN ASPART 100 UNITS/ML 3 ML PEN SC SCH ×2 (08:52→12:39)
[2020-05-08] MEDS: INSULIN GLARGINE SOLOSTAR 100 UNITS/ML 3 ML PEN SC SCH (08:52)
[2020-05-08] MEDS ORDERED: SULFAMETHOXAZOLE/TRIMETHOPRIM DS 800/160MG TAB PO SCH (09:00)
== END 2020-05-08 15:19 | disposition home or self-care (01) | DRG 641 ==
LOC: ED 13:49 → 3N 19:30 → SUATTDRO 19:30 → 3N 20:22
DX: N39.0 Urinary tract infection, site not specified; Z85.44 Personal history of malignant neoplasm of other female genital organs; Z79.82 Long term (current) use of aspirin; E11.9 Type 2 diabetes mellitus without complications; E83.39 Other disorders of phosphorus metabolism; Z51.81 Encounter for therapeutic drug level monitoring; Z79.84 Long term (current) use of oral hypoglycemic drugs; D50.9 Iron deficiency anemia, unspecified; Z83.438 Family history of other disorder of lipoprotein metabolism and other lipidemia; Z82.49 Family history of ischemic heart disease and other diseases of the circulatory system; E78.00 Pure hypercholesterolemia, unspecified; I10 Essential (primary) hypertension; Z90.710 Acquired absence of both cervix and uterus; E87.6 Hypokalemia; B96.20 Unspecified Escherichia coli [E. coli] as the cause of diseases classified elsewhere; Z79.899 Other long term (current) drug therapy; C79.51 Secondary malignant neoplasm of bone; E83.52 Hypercalcemia; Z80.0 Family history of malignant neoplasm of digestive organs; Z90.722 Acquired absence of ovaries, bilateral